=== PATIENT | female | born 1990 | race Caucasian/White ===

== ENCOUNTER → 2020-06-07 | Outpatient (CLI) | payer OTHER ==
[~2020-06-07] MED LIST: IOHEXOL 240 MG/ML 50ML VIAL. PO ONE; IOHEXOL 300 MG/ML 100ML VIAL. IV ONE
--- NOTE | 2020-06-07 16:12 | KCIC ---
EXAM: CT Abdomen and Pelvis with IV contrast INDICATION: Reason: Recurrent RLQ pain about 1 yr., infertility, uterine fibroid. / Spl. Instructions : 100mL Omni 300 / History: TECHNIQUE: Multi-detector row CT images were acquired from the lung bases through the abdomen and pel vis with the use of IV contrast. Sagittal and coronal images were acquired from the transaxial data. All CT scans performed at this facility utilize dose optimization techniques as appropriate to the ex am, including the following: Automated exposure control and adjustment of the mA and/or KV according to patient size (this includes techniques or standardized protocols for targeted exams where dose is indication/reason for exam). IV CONTRAST: Administered ORAL CONTRAST: Administered COMPARISON: None FINDINGS: LOWER CHEST: Unremarkable LIVER: Unremarkable BILIARY SYSTEM: Gallbladder is unremarkable. Bile ducts are not dilated. PANCREAS: Unremarkable SPLEEN: Unremarkable ADRENALS: Unremarkable KIDNEYS & URETERS: Unremarkable BLADDER: Unremarkable REPRODUCTIVE ORGANS: Subserosal leiomyoma at the uterine fundus measuring 3.8 cm is noted. Otherwise , reproductive organs unremarkable on CT. GASTROINTESTINAL: The stomach, small bowel, and colon are unremarkable. The appendix is normal. MESENTERY/PERITONEUM/RETROPERITONEUM: Unremarkable VASCULAR: Unremarkable LYMPH NODES: No adenopathy OSSEOUS & SOFT TISSUES: Unremarkable IMPRESSION: 1. Subserosal leiomyoma at the uterine fundus measuring 3.8 cm. 2. Otherwise unremarkable exam. No specific cause for right lower quadrant abdominal pain identified . Electronically signed by: Kaleigh Anthony MD (06/07/2020 4:10 PM) [id number]
== END ==
LOC: KCIC CT 08:23
PROVIDERS: ATTEND Family Medicine
DX: D25.9 Leiomyoma of uterus, unspecified (principal); N97.9 Female infertility, unspecified
CPT/HCPCS: 74177; Q9967